=== PATIENT | male | born 1980 | race Caucasian/White ===

== ENCOUNTER → 2017-10-13 | Outpatient (CLI) | payer OTHER ==
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
== END ==
LOC: HRAD 12:35
DX: R41.0 Disorientation, unspecified (principal)
CPT/HCPCS: 70450